=== PATIENT | male | born 1960 | race Caucasian/White ===

== ENCOUNTER 2020-11-03 07:19 | Outpatient (CLI) | payer BC ==
[2020-11-03 19:29] LABS: SARS-CoV-2 PCR by NAA Not Detected (NotDetected)
== END 2020-11-03 07:20 | disposition home or self-care (01) ==
LOC: LABBT 07:19
DX: Z01.818 Encounter for other preprocedural examination (principal); K62.0 Anal polyp; Z20.822 Contact with and (suspected) exposure to COVID-19
CPT/HCPCS: 93005; 93010; U0003; U0005

== ENCOUNTER 2020-11-05 06:27 | Day surgery (SDC) | payer BC ==
[2020-11-04 10:22] VITALS: BMI 26.4
[2020-11-05] MEDS ORDERED: Levofloxacin 500 mg/D5W 100 ml Premix Bag ONE (08:06)
[2020-11-05] MEDS ORDERED: Fentanyl 100 MCG/2 ML VIAL ONE (09:08)
[2020-11-05] MEDS ORDERED: PROPOFOL 60 ML ONE (09:08)
[2020-11-05] MEDS ORDERED: Lidocaine 1% w/Epinephrine 1:100K 30 ML VIAL ONE (09:12)
[2020-11-05] MEDS ORDERED: Lidocaine 2% Jelly 5 ML TUBE ONE (09:12)
[2020-11-05] MEDS ORDERED: Bupivacaine PF 0.5% 30 ML VIAL ONE (09:12)
[2020-11-05] MEDS ORDERED: PROPOFOL 200 MG/20 ML VIAL ONE (09:29)
[2020-11-05] MEDS ORDERED: Ketorolac Tromethamine 30 MG/ML VIAL ONE ×2 (09:29→10:22)
[2020-11-05] MEDS ORDERED: Bacitracin Zinc Ointment 30 gm TUBE ONE (09:49)
== END 2020-11-05 11:10 | disposition home or self-care (01) ==
LOC: SDC 06:27
PROVIDERS: ATTEND Surgery
PROC: 0DBQXZZ Excision of Anus, External Approach (ICD-10-PCS; principal; 2020-11-05)
DX: K64.4 Residual hemorrhoidal skin tags (principal); I10 Essential (primary) hypertension; Z79.899 Other long term (current) drug therapy; Z88.0 Allergy status to penicillin
CPT/HCPCS: 88304; J0690; J1885; J1956; J2704; J3010; S0020